=== PATIENT | female | born 1950 | race Two or more races ===

== ENCOUNTER 2023-08-28 10:13 | Outpatient (CLI) | payer MEDICARE, BC ==
[2023-08-28 11:03] LABS: BASOPHILS % (AUTO) 0.8 % (0.0-2.0); HEMATOCRIT 36 % (33-45); HEMOGLOBIN 12.2 g/dL (11.5-14.8); LYMPHOCYTES # (AUTO) 0.8 K/uL (0.8-4.8); LYMPHOCYTES % (AUTO) 17.5 % (20.0-44.0); MEAN CORPUSCULAR HEMOGLOBIN 32 PG (26.0-33.0); MEAN CORPUSCULAR HGB CONC 34 g/dl (31.0-36.0); MEAN CORPUSCULAR VOLUME 95 fL (82-100); MONOCYTES # (AUTO) 0.5 K/uL (0.1-1.30); MONOCYTES % (AUTO) 11.7 % (2.0-12.0); PLATELET COUNT (AUTO) 281 K/uL (150-450); RED BLOOD CELL COUNT(AUTO) 3.77 MIL/uL (4.0-5.2); RED CELL DISTRIBUTION WIDTH 13.3 % (11.5-15.0); WHITE BLOOD COUNT (AUTO) 4.3 K/uL (4.3-11.0)
[2023-08-28 11:19] LABS: APPEARANCE,URINE CLEAR (CLEAR); BILIRUBIN,URINE NEGATIVE (NEGATIVE); BLOOD, URINE 2+ Ery/uL (NEGATIVE); COLOR,URINE YELLOW (YELLOW); KETONES,URINE NEGATIVE (NEGATIVE); LEUKOCYTE ESTERASE ,URINE NEGATIVE (NEGATIVE); NITRITE, URINE NEGATIVE (NEGATIVE); PH,URINE 6.5 (5.0-8.0); PROTEIN,URINE NEGATIVE (NEGATIVE); UGLUCOSE NEGATIVE (NEGATIVE); UROBILINOGEN,URINE 0.2 EU/dL (0.2)
[2023-08-28 11:32] LABS: INR 2.31 (0.91-1.10); PARTIAL THROMBOPLASTIN TIME 38.4 SEC (24.3-34.3); PROTHROMBIN TIME 23.2 SECS (9.2-11.1)
[2023-08-28 11:38] LABS: ADD URINE CULTURE NO; BACTERIA,URINE Rare /HPF (None Seen); SQUAMOUS EPITHELIAL CELL,UR Rare /HPF (None Seen); WBC,URINE 0-2 /HPF (0-3)
[2023-08-28 12:30] LABS: ALBUMIN 4.1 g/dL (3.4-5.0); BILIRUBIN,TOTAL 0.3 mg/dL (0.2-1.0); CALCIUM, SERUM 9.6 mg/dL (8.5-10.1); CREATININE 0.8 mg/dL (0.6-1.3); POTASSIUM 4.2 mmol/L (3.5-5.1); TOTAL PROTEIN, SERUM 7.5 g/dL (6.4-8.2)
== END 2023-08-28 23:59 | disposition home or self-care (01) ==
LOC: RAD 10:13
PROVIDERS: ATTEND Internal Medicine Interventional Cardiology
DX: Z01.810 Encounter for preprocedural cardiovascular examination (principal); J84.10 Pulmonary fibrosis, unspecified; R53.83 Other fatigue; D68.9 Coagulation defect, unspecified; I70.0 Atherosclerosis of aorta; R06.00 Dyspnea, unspecified
CPT/HCPCS: 36415; 71046; 80053-TC; 81001; 85025-TC; 85730-TC

== ENCOUNTER 2023-09-04 07:19 | Inpatient (IN) | payer MEDICARE, BC ==
[~2023-09-04] VITALS: Ht 160 cm; Wt 59.0 kg
[2023-09-04] MEDS ORDERED: ROCURONIUM BROMIDE 50 MG/5 ML ONE (09:20)
[2023-09-04] MEDS ORDERED: FENTANYL PF 100MCG/2ML AMPUL ONE (09:20)
[2023-09-04] MEDS ORDERED: OXYMETAZOLINE HCL NASAL SPRAY 30 ML BOTTLE NS ONE (09:20)
[2023-09-04] MEDS ORDERED: FAMOTIDINE/PF INJ 20 MG/2 ML VIAL IV ONE (09:20)
[2023-09-04] MEDS ORDERED: dexaMETHasone SOD PHOSPHATE 10 MG/ML VIAL ONE (09:21)
[2023-09-04] MEDS ORDERED: LIDOCAINE 2%-EPI 1:200,000 20 ML VIAL IJ ONE (09:21)
[2023-09-04] MEDS ORDERED: VANCOMYCIN 1 GM VIAL ONE (09:21)
[2023-09-04] MEDS ORDERED: GLYCOPYRROLATE 0.2 MG/ML VIAL ONE (09:28)
[2023-09-04] MEDS ORDERED: CELLULOSE,OXIDIZED 1 EA PACK MC ONE (09:48)
[2023-09-04] MEDS ORDERED: BENA40TA67 PO (10:09)
[2023-09-04] MEDS ORDERED: AZAT50TA18 PO (10:09)
[2023-09-04] MEDS ORDERED: PRED5TAB PO (10:09)
[2023-09-04] MEDS ORDERED: WARF4TAB72 PO (10:09)
[2023-09-04] MEDS ORDERED: PHEN100C4 PO (10:09)
[2023-09-04] MEDS ORDERED: VERA180T25 PO (10:09)
[2023-09-04] MEDS ORDERED: ACETAMINOPHEN 325 MG TABLET PO PRN (12:30)
[2023-09-04] MEDS ORDERED: HYDROMORPHONE 1 MG/1 ML DISP.SYRIN IV PRN (12:30)
[2023-09-04] MEDS ORDERED: IV NS 0.9% 1,000 ML IV PRN (12:30)
[2023-09-04] MEDS ORDERED: ONDANSETRON HCL/PF 4 MG/2 ML VIAL IV PRN (12:30)
[2023-09-04 13:48] VITALS: BP 167/85; TEMP 98.2; O2SAT 100
[2023-09-04 16:26] VITALS: BP 160/84; TEMP 98; O2SAT 96
[2023-09-04] MEDS ORDERED: Z GUARD REMEDY 4 OZ OINT TP PRN (17:30)
[2023-09-04] MEDS ORDERED: CELLULOSE,OXIDIZED 1 EACH EACH MC ONE (17:30)
[2023-09-04] MEDS ORDERED: ZOLPIDEM TARTRATE 5 MG TABLET PO PRN (17:30)
[2023-09-04] MEDS ORDERED: ONDANSETRON HCL/PF 4 MG/2 ML VIAL IVP PRN (17:30)
[2023-09-04] MEDS ORDERED: MAGNESIUM HYDROXIDE 30 ML UDC PO PRN (17:30)
[2023-09-04] MEDS ORDERED: MAG HYDROX/AL HYDROX/SIMETH 30 ML UDC PO PRN (17:30)
[2023-09-04] MEDS: BENAZEPRIL HCL 20 MG TABLET PO SCH (18:04)
[2023-09-04] MEDS: hydrALAZINE HCL 25 MG TABLET PO SCH (18:05)
[2023-09-04 20:00] VITALS: BP 121/77; TEMP 99; O2SAT 97
[2023-09-04] MEDS: methylPREDNISolone SOD SUCC 40 MG/ML VIAL IV SCH (21:56)
[2023-09-04] MEDS: VANCOMYCIN 1 GM in IV D5W 250ml IV SCH (22:07)
[2023-09-04 22:32] LABS: HEMOGLOBIN 11.4 g/dL (11.5-14.8)
[2023-09-05] MEDS: methylPREDNISolone SOD SUCC 40 MG/ML VIAL IV SCH ×3 (05:52→21:08)
[2023-09-05 07:00] VITALS: BP 142/85; TEMP 97.9; O2SAT 98
[2023-09-05 07:46] LABS: BASOPHILS % (AUTO) 0.2 % (0.0-2.0); HEMATOCRIT 34 % (33-45); HEMOGLOBIN 11.3 g/dL (11.5-14.8); LYMPHOCYTES # (AUTO) 0.8 K/uL (0.8-4.8); LYMPHOCYTES % (AUTO) 7.7 % (20.0-44.0); MEAN CORPUSCULAR HEMOGLOBIN 33 PG (26.0-33.0); MEAN CORPUSCULAR HGB CONC 34 g/dl (31.0-36.0); MEAN CORPUSCULAR VOLUME 98 fL (82-100); MONOCYTES # (AUTO) 0.7 K/uL (0.1-1.30); MONOCYTES % (AUTO) 6.3 % (2.0-12.0); NEUTROPHILS % (AUTO) 85.8 % (43.0-81.0); PLATELET COUNT (AUTO) 240 K/uL (150-450); RED BLOOD CELL COUNT(AUTO) 3.44 MIL/uL (4.0-5.2); RED CELL DISTRIBUTION WIDTH 13.3 % (11.5-15.0); WHITE BLOOD COUNT (AUTO) 10.5 K/uL (4.3-11.0)
[2023-09-05 08:03] LABS: CALCIUM, SERUM 8.6 mg/dL (8.5-10.1); CREATININE 0.5 mg/dL (0.6-1.3); POTASSIUM 4.3 mmol/L (3.5-5.1)
[2023-09-05] MEDS: PHENYTOIN EXTENDED RELEASE 100 MG CAPSULE PO SCH (08:21)
[2023-09-05] MEDS: AZATHIOPRINE 50 MG TABLET PO SCH (08:21)
[2023-09-05] MEDS: hydrALAZINE HCL 25 MG TABLET PO SCH ×3 (08:21→17:27)
[2023-09-05] MEDS: BENAZEPRIL HCL 20 MG TABLET PO SCH (08:21)
[2023-09-05] MEDS: VERAPAMIL SR 120 MG TABLET.SA PO SCH (08:22)
[2023-09-05 08:36] LABS: MAGNESIUM 2.2 mg/dL (1.8-2.4); PHOSPHORUS 3.4 mg/dL (2.5-4.9)
[2023-09-05] MEDS: VANCOMYCIN 1 GM in IV D5W 250ml IV SCH (09:02)
[2023-09-05 15:47] LABS: INR 1.4 (0.91-1.10); PARTIAL THROMBOPLASTIN TIME 33.9 SEC (24.3-34.3); PROTHROMBIN TIME 14.5 SECS (9.2-11.1)
[2023-09-05 16:00] VITALS: BP 136/74; TEMP 97.8; O2SAT 97
[2023-09-05 16:22] LABS: ALBUMIN 3.4 g/dL (3.4-5.0); BILIRUBIN,DIRECT 0.1 mg/dL (0.0-0.2); BILIRUBIN,TOTAL 0.3 mg/dL (0.2-1.0); TOTAL PROTEIN, SERUM 6.8 g/dL (6.4-8.2)
[2023-09-05 20:00] VITALS: BP 127/76; TEMP 97.9; O2SAT 18
[2023-09-05] MEDS: HEPARIN SODIUM, PORCINE 5000 UNITS/1 ML VIAL SQ SCH (21:07)
[2023-09-06] MEDS: methylPREDNISolone SOD SUCC 40 MG/ML VIAL IV SCH ×2 (05:08→13:19)
[2023-09-06 06:24] LABS: BASOPHILS % (AUTO) 0.3 % (0.0-2.0); EOSINOPHILS % (AUTO) 0.2 % (0.0-6.0); HEMATOCRIT 32 % (33-45); LYMPHOCYTES # (AUTO) 1.1 K/uL (0.8-4.8); LYMPHOCYTES % (AUTO) 14.7 % (20.0-44.0); MEAN CORPUSCULAR HEMOGLOBIN 33 PG (26.0-33.0); MEAN CORPUSCULAR HGB CONC 34 g/dl (31.0-36.0); MEAN CORPUSCULAR VOLUME 97 fL (82-100); MONOCYTES # (AUTO) 0.5 K/uL (0.1-1.30); MONOCYTES % (AUTO) 6.9 % (2.0-12.0); NEUTROPHILS # (AUTO) 5.9 K/uL (1.8-8.9); NEUTROPHILS % (AUTO) 77.9 % (43.0-81.0); PLATELET COUNT (AUTO) 251 K/uL (150-450); RED BLOOD CELL COUNT(AUTO) 3.31 MIL/uL (4.0-5.2); RED CELL DISTRIBUTION WIDTH 13.5 % (11.5-15.0); WHITE BLOOD COUNT (AUTO) 7.6 K/uL (4.3-11.0)
[2023-09-06 06:30] LABS: INR 1.22 (0.91-1.10); PARTIAL THROMBOPLASTIN TIME 28.8 SEC (24.3-34.3); PROTHROMBIN TIME 12.8 SECS (9.2-11.1)
[2023-09-06 06:42] LABS: CALCIUM, SERUM 8.6 mg/dL (8.5-10.1); CREATININE 0.6 mg/dL (0.6-1.3); MAGNESIUM 1.9 mg/dL (1.8-2.4); PHOSPHORUS 3.1 mg/dL (2.5-4.9); POTASSIUM 3.7 mmol/L (3.5-5.1)
[2023-09-06 07:00] VITALS: BP 151/84; TEMP 98.6; O2SAT 98
[2023-09-06] MEDS: BENAZEPRIL HCL 20 MG TABLET PO SCH (08:55)
[2023-09-06] MEDS: AZATHIOPRINE 50 MG TABLET PO SCH (08:55)
[2023-09-06] MEDS: PHENYTOIN EXTENDED RELEASE 100 MG CAPSULE PO SCH (08:55)
[2023-09-06] MEDS: VERAPAMIL SR 120 MG TABLET.SA PO SCH (08:55)
[2023-09-06] MEDS: HEPARIN SODIUM, PORCINE 5000 UNITS/1 ML VIAL SQ SCH (08:56)
[2023-09-06] MEDS: hydrALAZINE HCL 25 MG TABLET PO SCH ×2 (08:56→13:19)
[2023-09-06 13:19] VITALS: BP 139/74
[2023-09-06] MEDS ORDERED: APIX2.5T PO (14:09)
[2023-09-08 00:07] LABS: FOLIC ACID 13.1 ng/mL (>3.0)
[2023-09-08 04:07] LABS: IMMUNOGLOBULIN A, SERUM 145 mg/dL (87-352); IMMUNOGLOBULIN G, SERUM 1003 mg/dL (586-1602)
[2023-09-08 09:08] LABS: *SPE A/G RATIO 1.2 (0.7-1.7); *SPE ALBUMIN 3.5 g/dL (2.9-4.4); *SPE ALPHA-1-GLOBULIN 0.3 g/dL (0.0-0.4); *SPE ALPHA-2-GLOBULIN 0.8 g/dL (0.4-1.0); *SPE BETA GLOBULIN 0.9 g/dL (0.7-1.3); *SPE GLOBULIN, TOTAL 2.9 g/dL (2.2-3.9); *SPE M-SPIKE Not Observed g/dL (Not Observed); *SPE PROTEIN TOTAL 6.4 g/dL (6.0-8.5)
[2023-09-08 12:06] LABS: FREE KAPPA LT CHAINS SERUM 18.1 mg/L (3.3-19.4); FREE LAMBDA LT CHAIN SERUM 16.3 mg/L (5.7-26.3); KAPPA/LAMBDA RATIO SERUM 1.11 (0.26-1.65)
[2023-09-08 16:07] LABS: IMMUNOGLOBULIN M, SERUM <5 mg/dL (26-217)
== END 2023-09-06 15:30 | disposition home or self-care (01) | DRG 141 ==
LOC: DS 07:19 → MED 07:20
PROVIDERS: ADMIT Student in an Organized Health Care Education/Training Program; ATTEND Student in an Organized Health Care Education/Training Program
PROC: 0NBR0ZX Excision of Maxilla, Open Approach, Diagnostic (ICD-10-PCS; principal; 2023-09-04)
PROC: 0NSR04Z Reposition Maxilla with Internal Fixation Device, Open Approach (ICD-10-PCS; 2023-09-04)
PROC: 0NUR07Z Supplement Maxilla with Autologous Tissue Substitute, Open Approach (ICD-10-PCS; 2023-09-04)
DX: S02.40CB Maxillary fracture, right side, initial encounter for open fracture (principal); D68.62 Lupus anticoagulant syndrome; M87.88 Other osteonecrosis, other site; D68.9 Coagulation defect, unspecified; D49.2 Neoplasm of unspecified behavior of bone, soft tissue, and skin; J32.9 Chronic sinusitis, unspecified; M27.2 Inflammatory conditions of jaws; X58.XXXD Exposure to other specified factors, subsequent encounter; M32.9 Systemic lupus erythematosus, unspecified; I10 Essential (primary) hypertension; G40.909 Epilepsy, unspecified, not intractable, without status epilepticus; I34.0 Nonrheumatic mitral (valve) insufficiency; D64.9 Anemia, unspecified; Z86.73 Personal history of transient ischemic attack (TIA), and cerebral infarction without residual deficits; Z79.01 Long term (current) use of anticoagulants; Z79.52 Long term (current) use of systemic steroids; Z88.0 Allergy status to penicillin; Z88.6 Allergy status to analgesic agent; Z82.49 Family history of ischemic heart disease and other diseases of the circulatory system; Z80.9 Family history of malignant neoplasm, unspecified; X58.XXXA Exposure to other specified factors, initial encounter; Y92.9 Unspecified place or not applicable
CPT/HCPCS: 36415; 70450-TC; 80048-TC; 80076-TC; 82607-TC; 82728-TC; 82784; 83540-TC; 83735-TC; 84100-TC; 84155; 84165; 85025-TC; 85027-TC; 85385-TC; 85610-TC; 85730-TC; 86334; 86850-TC; C1713; G0378; J1100; J1644; J2405; J2704; J2765; J2920; J3010; J3370; J3490; J7030; J7060; J7500